=== PATIENT | male | born 1940 | race Caucasian/White ===

== ENCOUNTER 2023-09-10 05:59 | Day surgery (SDC) | payer MEDICARE, BC ==
[2023-09-10] VITALS (11 sets, daily range): BP systolic 100–124; BP diastolic 48–84; PULSE 56–69; RESP 9–21; TEMP 98.6; O2SAT 92–95
[~2023-09-10] VITALS: Ht 177.8 cm; Wt 81.6 kg
[~2023-09-10 05:59] MED LIST: AMI200T PO; ATOR20TA66 PO; CARV3.1244 PO; FINA5TAB12 PO; GLUC-95 PO; LEVO88TA7 PO; LISI10TA27 PO; MULT-1085 PO; NITR0.4T51 SL; SPIR25TA5 PO
[2023-09-10] MEDS ORDERED: vancomycin 1,500 MG in NS 300ml IV soln IV ONE (06:28)
[2023-09-10] MEDS ORDERED: cefazolin 2gm/D5W 100mL 100 ML IV ONE (06:28)
[2023-09-10] MEDS ORDERED: normal saline 1000ml 1,000 ML IV SCH ×2 (06:30→09:35)
[2023-09-10 07:13] LABS: BASOPHILS # (AUTO) 0.1 X10'3 (0-0.2); BASOPHILS % (AUTO) 0.6 % (0-1); EOSINOPHILS # (AUTO) 0.1 X10'3 (0-0.9); EOSINOPHILS % (AUTO) 1.2 % (0-6); LYMPHOCYTES # (AUTO) 2.5 X10'3 (1.1-4.8); LYMPHOCYTES % (AUTO) 22.2 % (21-51); MEAN CORPUSCULAR HEMOGLOBIN 30.8 PG (27.0-31.0); MEAN CORPUSCULAR HGB CONC 33.2 g/dL (33.0-36.5); MEAN CORPUSCULAR VOLUME 92.8 FL (78-98); MEAN PLATELET VOLUME 7.9 FL (7.4-10.4); MONOCYTES # (AUTO) 1.2 X10'3 (0-0.9); MONOCYTES % (AUTO) 10.7 % (2-12); NEUTROPHILS # (AUTO) 7.3 X10'3 (1.8-7.7); NEUTROPHILS % (AUTO) 65.3 % (42-75); PRE OP HEMATOCRIT 44.3 % (42.0-52.0); PRE OP HEMOGLOBIN 14.7 g/dL (14.0-17.9); PRE OP PLATELET COUNT 322 X10'3 (140-440); PRE OP WHITE BLOOD COUNT 11.2 10'3 (4.8-10.8); RED BLOOD COUNT 4.77 X10'6 (4.70-6.10); RED CELL DISTRIBUTION WIDTH 15.8 % (11.5-14.5)
[2023-09-10] MEDS ORDERED: APIX5TAB3 PO (07:14)
[2023-09-10] MEDS ORDERED: ONDA4TAB12 SL (07:14)
[2023-09-10 07:23] LABS: PROTHROMBIN TIME 10.7 SECONDS (9.0-12.0)
[2023-09-10] MEDS ORDERED: midazolam 1 mg/ML 2ml injection ONE ×2 (07:23→08:14)
[2023-09-10] MEDS ORDERED: proCHLORperazine 10 MG/2 ml inj ONE (07:23)
[2023-09-10] MEDS ORDERED: fentaNYL/PF 50MCG/1 ML 2ML syringe ONE ×2 (07:23→08:13)
[2023-09-10] MEDS ORDERED: LIDOCAINE 2%/EPI 1:100,000 inj. Multi-dose 20 ML VIAL ONE (07:23)
[2023-09-10 07:24] LABS: ANION GAP 12 (8-16); BLOOD UREA NITROGEN 14 MG/DL (7-18); BUN/CREATININE RATIO 12.8 (10.0-20.0); CALCIUM 9.3 MG/DL (8.5-10.1); CHLORIDE 101 MMOL/L (99-107); CREATININE 1.09 MG/DL (0.60-1.10); GLUCOSE 104 MG/DL (70-104); MAGNESIUM 2.2 MG/DL (1.5-2.4); SODIUM 137 MMOL/L (135-145); TOTAL CARBON DIOXIDE 24.3 MMOL/L (24-32); eCRCL 51 ML/MIN; eGFR 64 ML/MIN
[2023-09-10] MEDS ORDERED: vancomycin 1,000mg inj ONE (07:24)
[2023-09-10] MEDS ORDERED: HYDROcodone/acetaminophen 10/325mg tab PO PRN (09:35)
[2023-09-10] MEDS ORDERED: HYDROcodone/acetaminophen 5mg/325mg tablet PO PRN (09:35)
== END 2023-09-10 12:10 | disposition home or self-care (01) ==
LOC: SSTAY O 05:59
PROVIDERS: ATTEND Internal Medicine Cardiovascular Disease
DX: I49.5 Sick sinus syndrome (principal); I25.10 Atherosclerotic heart disease of native coronary artery without angina pectoris; I25.5 Ischemic cardiomyopathy; Z95.2 Presence of prosthetic heart valve; Z79.899 Other long term (current) drug therapy; Z98.890 Other specified postprocedural states
CPT/HCPCS: 33208; 36415; 71045; 80048; 83735; 85025; 85610; 93005; 99152; 99153; C1785; C1898; J0780; J2250; J3010; J3370; J7030; A4565

== ENCOUNTER 2024-08-11 08:26 | Day surgery (SDC) | payer MEDICARE, BC ==
[2024-08-11] VITALS (8 sets, daily range): BP systolic 111–142; BP diastolic 59–87; PULSE 61–70; RESP 11–15; TEMP 98; O2SAT 93–97
[~2024-08-11] VITALS: Ht 177.8 cm; Wt 87.7 kg
[~2024-08-11 08:26] MED LIST changes: +APIX5TAB3 PO; -CARV3.1244 PO; +ONDA-243 SL
[2024-08-11] MEDS ORDERED: cefazolin 2gm/D5W 100mL 100 ML IV ONE (08:50)
[2024-08-11 09:24] LABS: BASOPHILS # (AUTO) 0.1 X10'3 (0-0.2); BASOPHILS % (AUTO) 0.5 % (0-1); EOSINOPHILS # (AUTO) 0.1 X10'3 (0-0.9); EOSINOPHILS % (AUTO) 1.1 % (0-6); HEMATOCRIT 42.2 % (42.0-52.0); HEMOGLOBIN 14.1 g/dl (14.0-17.9); LYMPHOCYTES # (AUTO) 2.2 X10'3 (1.1-4.8); LYMPHOCYTES % (AUTO) 20.2 % (21-51); MEAN CORPUSCULAR HEMOGLOBIN 30.9 PG (27.0-31.0); MEAN CORPUSCULAR HGB CONC 33.5 g/dL (33.0-36.5); MEAN CORPUSCULAR VOLUME 92.3 FL (78-98); MEAN PLATELET VOLUME 8.5 FL (7.4-10.4); MONOCYTES % (AUTO) 9.6 % (2-12); NEUTROPHILS # (AUTO) 7.4 X10'3 (1.8-7.7); NEUTROPHILS % (AUTO) 68.6 % (42-75); PLATELET COUNT 210 X10'3 (140-440); RED BLOOD COUNT 4.58 X10'6 (4.70-6.10); RED CELL DISTRIBUTION WIDTH 13.4 % (11.5-14.5); WHITE BLOOD COUNT 10.8 X10'3 (4.5-11.0)
[2024-08-11 09:36] LABS: ANION GAP 12 (8-16); BLOOD UREA NITROGEN 20 MG/DL (7-18); CHLORIDE 104 MMOL/L (99-107); GLUCOSE 100 MG/DL (70-104); INR 1.1 INR; MAGNESIUM 2.1 MG/DL (1.5-2.4); POTASSIUM 4.2 MMOL/L (3.5-5.1); PROTHROMBIN TIME 11.1 SECONDS (9.0-12.0); SODIUM 139 MMOL/L (135-145); TOTAL CARBON DIOXIDE 23.1 MMOL/L (24-32); eCRCL 55 ML/MIN; eGFR 71 ML/MIN
[2024-08-11] MEDS: VANCOMYCIN 1,500MG in normal saline IV soln 300 ML IV ONE (09:36)
[2024-08-11] MEDS ORDERED: iohexol 350 MG/ML 50ML vial IV ONE (12:30)
[2024-08-11] MEDS ORDERED: midazolam 1 mg/ML 2ml injection ONE (12:30)
[2024-08-11] MEDS ORDERED: LIDOcaine 1% w/EPI 1:100,000 inj. MDV 50 ML VIAL ONE (12:30)
[2024-08-11] MEDS ORDERED: fentaNYL/PF 50MCG/1 ML 2ML syringe ONE (12:30)
[2024-08-11] MEDS ORDERED: vancomycin 1,000mg inj ONE (12:30)
== END 2024-08-11 16:50 | disposition home or self-care (01) ==
LOC: SSTAY O 08:26
PROVIDERS: ATTEND Internal Medicine Cardiovascular Disease
DX: I25.5 Ischemic cardiomyopathy (principal); I47.20 Ventricular tachycardia, unspecified; Z95.0 Presence of cardiac pacemaker; Z79.890 Hormone replacement therapy; Z79.899 Other long term (current) drug therapy
CPT/HCPCS: 33233; 33235; 36415; 80048; 83735; 85025; 85610; 93005; A6402; J2250; J3010; J3370; J3490; J7030; J7040; Q9967; 99152; 99153; A6449

== ENCOUNTER 2024-08-15 07:35 | Day surgery (SDC) | payer MEDICARE, BC ==
[2024-08-15] VITALS (10 sets, daily range): BP systolic 106–138; BP diastolic 57–81; PULSE 61–89; RESP 11–23; TEMP 97.9; O2SAT 94–98
[~2024-08-15] VITALS: Ht 177.8 cm; Wt 87.7 kg
[~2024-08-15 07:35] MED LIST changes: -ONDA-243 SL
[2024-08-15 08:37] LABS: BASOPHILS # (AUTO) 0.1 X10'3 (0-0.2); BASOPHILS % (AUTO) 0.7 % (0-1); EOSINOPHILS # (AUTO) 0.3 X10'3 (0-0.9); EOSINOPHILS % (AUTO) 2.5 % (0-6); HEMATOCRIT 42.5 % (42.0-52.0); HEMOGLOBIN 13.9 g/dl (14.0-17.9); LYMPHOCYTES # (AUTO) 1.9 X10'3 (1.1-4.8); LYMPHOCYTES % (AUTO) 15.9 % (21-51); MEAN CORPUSCULAR HEMOGLOBIN 30.4 PG (27.0-31.0); MEAN CORPUSCULAR HGB CONC 32.8 g/dL (33.0-36.5); MEAN CORPUSCULAR VOLUME 92.5 FL (78-98); MEAN PLATELET VOLUME 8.6 FL (7.4-10.4); MONOCYTES # (AUTO) 1.3 X10'3 (0-0.9); MONOCYTES % (AUTO) 11.2 % (2-12); NEUTROPHILS # (AUTO) 8.3 X10'3 (1.8-7.7); NEUTROPHILS % (AUTO) 69.7 % (42-75); PLATELET COUNT 227 X10'3 (140-440); RED BLOOD COUNT 4.59 X10'6 (4.70-6.10); RED CELL DISTRIBUTION WIDTH 13.4 % (11.5-14.5); WHITE BLOOD COUNT 11.9 X10'3 (4.5-11.0)
[2024-08-15] MEDS ORDERED: CHOL10CA2 PO (08:46)
[2024-08-15] MEDS ORDERED: LISI5TAB22 PO (08:46)
[2024-08-15] MEDS ORDERED: VITA40TA PO (08:46)
[2024-08-15 08:48] LABS: PROTHROMBIN TIME 10.9 SECONDS (9.0-12.0)
[2024-08-15 08:58] LABS: ALBUMIN 3.7 G/DL (3.4-5.0); ANION GAP 9 (8-16); BLOOD UREA NITROGEN 16 MG/DL (7-18); BUN/CREATININE RATIO 15.1 (10.0-20.0); CALCIUM 8.6 MG/DL (8.5-10.1); CHLORIDE 102 MMOL/L (99-107); CREATININE 1.06 MG/DL (0.60-1.10); GLUCOSE 104 MG/DL (70-104); MAGNESIUM 2.1 MG/DL (1.5-2.4); POTASSIUM 4.2 MMOL/L (3.5-5.1); SODIUM 135 MMOL/L (135-145); TOTAL CARBON DIOXIDE 24.1 MMOL/L (24-32); eCRCL 52 ML/MIN; eGFR 66 ML/MIN
[2024-08-15] MEDS: VANCOMYCIN 1,500MG in normal saline IV soln 300 ML IV ONE (10:03)
[2024-08-15] MEDS: cefazolin 2gm/D5W 100mL 100 ML IV ONE (10:04)
[2024-08-15] MEDS: normal saline 1000ml 1,000 ML IV SCH (10:04)
[2024-08-15] MEDS ORDERED: fentaNYL/PF 50MCG/1 ML 2ML syringe ONE (11:07)
[2024-08-15] MEDS ORDERED: midazolam 1 mg/ML 2ml injection ONE ×2 (11:07→12:00)
[2024-08-15] MEDS ORDERED: vancomycin 1,000mg inj ONE (11:07)
[2024-08-15] MEDS ORDERED: iohexol 350 MG/ML 50ML vial IV ONE ×2 (11:07→11:29)
[2024-08-15] MEDS ORDERED: LIDOcaine 1% W/epiNEPHrine 1:100,000 20ml vial ONE (11:07)
[2024-08-15] MEDS ORDERED: normal saline 1000ml 1,000 ML IV ONE (14:05)
== END 2024-08-15 16:45 | disposition home or self-care (01) ==
LOC: SSTAY O 07:35
PROVIDERS: ATTEND Internal Medicine Cardiovascular Disease
DX: I47.29 Other ventricular tachycardia (principal); I49.3 Ventricular premature depolarization; R94.31 Abnormal electrocardiogram [ECG] [EKG]; I45.10 Unspecified right bundle-branch block; I25.10 Atherosclerotic heart disease of native coronary artery without angina pectoris; I25.5 Ischemic cardiomyopathy; G47.30 Sleep apnea, unspecified; Z95.2 Presence of prosthetic heart valve
CPT/HCPCS: 33225; 33249; 36415; 71045; 80048; 83735; 85025; 85610; 93005; 99152; 99153; A4565; A6258; C1769; C1882; C1896; C1900; J0690; J2250; J3010; J3370; J3490; J7030; J7040; Q9967; C1895